=== PATIENT | female | born 1950 | race Caucasian/White ===

== ENCOUNTER 2018-04-17 17:55 | Emergency (ER) | payer MEDICARE, OTHER ==
[2018-04-17 18:13] VITALS: BP 145/75
--- NOTE | 2018-04-17 18:57 | ED Physician Documentation ---
PD HPI UPPER EXT INJURY - Stated complaint Stated Complaint: GLF/L ARM & ANKLE PX - Chief complaint Chief Complaint: Ext Problem - History obtained from History obtained from: Patient, Family - History of Present Illness Location: Other (She is [place] from [place] of [place] for a [place], she tripped and fell on a step and hurt her left forearm and twisted her right ankle.) Review of Systems Constitutional: reports: Reviewed and negative Cardiac: reports: Reviewed and negative Respiratory: reports: Reviewed and negative PD PAST MEDICAL HISTORY - Allergies Allergies/Adverse Reactions: Allergies Allergy/AdvReac Type Severity Reaction Status Date / Time tramadol Allergy Unknown Verified 04/17/18 18:13 PD ED PE NORMAL - General General: Alert and oriented X 3, No acute distress - HEENT HEENT: PERRL, EOMI - Neck Neck: Supple, no meningeal sign, No bony TTP - Extremities Extremities: Other (She is tender over the proximal ulna on the left, and has pain especially pronation and supination of the arm. Wrist itself and hand are nontender with normal neurovascular status. The knees are nontender. She is mildly tender over the lateral malleolus of the right ankle but more so over the ATFL. There is no tenderness of the proximal fibula on either side nor the feet.) - Neuro Neuro: Alert and oriented X 3, Normal speech Results - Vitals Vitals: Vital Signs - 24 hr 04/17/18 18:04 Temperature 36.4 C L Heart Rate 70 Respiratory 18 Rate Blood Pressure 145/75 H O2 Saturation 100 Oxygen O2 Source Room air - Rads (name of study) X-rays of the right ankle, left forearm and left elbow. Radiology: EMP read contemporaneously (Normal) PD MEDICAL DECISION MAKING - Sepsis Event Vital Signs: Vital Signs - 24 hr 04/17/18 18:04 Temperature 36.4 C L Heart Rate 70 Respiratory 18 Rate Blood Pressure 145/75 H O2 Saturation 100 Oxygen O2 Source Room air Departure - Departure Disposition: 01 Home, Self Care Clinical Impression: Contusion of forearm, left Qualifiers: Encounter type: initial encounter Qualified Code(s): S50.12XA - Contusion of left forearm, initial encounter Right ankle sprain Qualifiers: Encounter type: initial encounter Involved ligament of ankle: anterior talofibular ligament Qualified Code(s): S93.491A - Sprain of other ligament of right ankle, initial encounter Condition: Good Record reviewed to determine appropriate education?: Yes Instructions: ED Sprain Ankle Comments: Your blood pressure was elevated today on check into the emergency department. This does not mean that you have hypertension, it is a common phenomenon to come to the emergency department and have elevated blood pressure. I recommend that you see your primary care physician within the week to have it rechecked when you are feeling better.
--- NOTE | 2018-04-17 19:37 | XRAY Report ---
Procedure Date: 04/17/2018 Accession Number: [id number] / [id number] Procedure: XR - Ankle 3 View RT CPT Code: FULL RESULT: EXAM: FALL, PAIN ANKLE RADIOGRAPHY EXAM DATE: 04/17/2018 07:16 PM. CLINICAL HISTORY: Injury. COMPARISON: None. TECHNIQUE: 3 views. FINDINGS: Bones: No fracture or focal bony lesion. Joints: No evidence of dislocation. Soft Tissues: No unexpected soft tissue findings. IMPRESSION: No evidence of fracture or dislocation. [facility]
--- NOTE | 2018-04-17 19:37 | XRAY Report ---
Procedure Date: 04/17/2018 Accession Number: [id number] / [id number] Procedure: XR - Elbow 3 View LT CPT Code: FULL RESULT: EXAM: LEFT ELBOW RADIOGRAPHY EXAM DATE: 04/17/2018 07:16 PM. CLINICAL HISTORY: Injury. COMPARISON: None. TECHNIQUE: 3 views. FINDINGS: Bones: No fracture or focal bony lesion. Joints: No evidence of dislocation. Soft Tissues: No unexpected soft tissue findings. IMPRESSION: No evidence of fracture or dislocation. [facility]
--- NOTE | 2018-04-17 19:38 | XRAY Report ---
Procedure Date: 04/17/2018 Accession Number: [id number] / [id number] Procedure: XR - Forearm LT CPT Code: FULL RESULT: EXAM: LEFT FOREARM RADIOGRAPHY EXAM DATE: 04/17/2018 07:16 PM. CLINICAL HISTORY: Fall, pain COMPARISON: ELBOW 3 VIEW LT 04/17/2018. TECHNIQUE: 2 views. FINDINGS: Bones: Normal. No fractures or bone lesions. Joints: Normal. No effusions or subluxations in the visualized wrist or elbow joints. Soft Tissues: Normal. No soft tissue swelling. IMPRESSION: Negative forearm radiography. [facility]
== END 2018-04-17 19:54 | disposition home or self-care (01) ==
LOC: ED 17:55
DX: S50.12XA Contusion of left forearm, initial encounter (principal); S93.491A Sprain of other ligament of right ankle, initial encounter; W01.0XXA Fall on same level from slipping, tripping and stumbling without subsequent striking against object, initial encounter; X50.9XXA Other and unspecified overexertion or strenuous movements or postures, initial encounter; R03.0 Elevated blood-pressure reading, without diagnosis of hypertension
CPT/HCPCS: 99283